=== PATIENT | male | born 1975 | race Caucasian/White ===

== ENCOUNTER 2018-04-04 06:28 | Outpatient (CLI) | payer BC ==
[~2018-04-04] VITALS: Ht 177.8 cm; Wt 102.3 kg
--- NOTE | ~2018-04-04 | HEMODYNAMI ---
PATIENT:ARIANA WELCH MEDICAL RECORD: [id number] : 73 LOCATION:[facility] ADMISSION DATE: 04/04/18 Generatedon:04/04/20188:41 Patient name: ARIANA WELCH Patient #: [id number] SSN: DO B: 1975 Date of study: 04/04/2018 Page: Of Hemodynamic Procedure Report Patient Data Patient Demographics Procedure consent was obtained First Name: ARIANA Gender: Male Last Name: REBEKAH : 1975 Patient #: [id number] Age: 42 year(s) Race: Unknown Additional ID: [id number] Contact details [address]: [address] [place] [address] State: [place] City: [place] Zip code: [address] Past Medical History Allergies: No known allergies Admission Admission Data Admission Date: 04/04/2018 Admission Time: 6:28 Lab Results Lab Result Date: 04/04/2018 Lab Result Time: 7:15 Biochemistry Name Units Result Min Max BUN mg/dl 17 --(---*)-- 7 18 Creatinine mg/dl 1 --(--*-)-- 0.6 1.3 CBC Name Units Result Min Max Hematocrit % 42.3 --(*---)-- 42 54 Hemoglobin g/dl 14.8 --(-*--)-- 13.5 17.5 Procedure Procedure Types Cath Procedure Diagnostic Procedure LHC LHC w/Coronaries Procedure Description Procedure Date Procedure Date: 04/04/2018 Procedure Start Time: 8:24 Procedure End Time: 8:41 Procedure Staff Name Function Chas Fong MD Performing Physician Regina Sol RT Monitor Paulo Haney RN Nurse Pedro Stone RN [employer] Kala Mccabe RT Scrub Procedure Data Cath Procedure Fluoroscopy Diagnostic fluoroscopy Total fluoroscopy Time: 6.1 time: 6.1 min min Diagnostic fluoroscopy Total fluoroscopy dose: 604 dose: 604 mGy mGy Contrast Material Contrast Material Type Amount (ml) Isovue 370 40 Entry Location Entry Primary Successful Side Size Upsize Upsize Entry Closure Bowen ccessful Closure Location (Fr) 1 (Fr) 2 (Fr) Remarks Device Remarks Radial Right 6 Fr Mechanical artery Short Compression Estimated blood loss: 5 ml Diagnostic catheters Device Type Used For End Catheter Placement DIAGNOSTIC Chaparro 110cm LV Angiography 5Fr catheter ([id number]) DIAGNOSTIC Chaparro 110cm Right Coronary 5Fr catheter ([id number]) Angiography DIAGNOSTIC Chaparro 110cm Left Coronary 5Fr catheter ([id number]) Angiography DIAGNOSTIC Beggs 110cm 5 Left Coronary Fr catheter (687331) Angiography Procedure Complications No complications Procedure Medications Medication Administration Route Dosage 0.9% NaCl I.V. 100 ml/hr Oxygen etCO2 Nasal cannula 2 l/min Heparin Flush Bag added to field 2 bags (1000units/500ml NS) Lidocaine 2% added to field 20 Radial Cocktail added to field 1 syringe (Verapomil 2mg/Nitro 400mcg/Heparin 1500units) Versed I.V. 2 mg Fentanyl I.V. 50 mcg Radial Cocktail I.A. 1 syringe (Verapomil 2mg/Nitro 400mcg/Heparin 1500units) Hemodynamics Rest HGB: 14.8 (g/dl) Heart Rate: 61 (bpm) Pressure Samples Time Site Value (mmHg) Purpose Heart Use Rate(bpm) 8:28 LV 95/-5,9 EDP 72 8:28 LV 114/3,13 Snapshot 76 Gradients Valve Time Site Site Mean SEP/DFP Peak To Heart Use 1 2 (mmHg) (sec/min) Peak Rate (mmHg) (bpm) Aortic 8:29 LV AO 80 Snapshots Pre Cath Intra NCS Post Cath Vital Signs Time Heart Resp SPO2 etCO2 NIBP (mmHg) Rhythm Pain Sedation Rate (ipm) (%) (mmHg) Status Level (bpm) 8:07:16 57 16 100 0 136/82(106) NSR 0 (11) 10(A) , No pain 8:12:05 58 18 100 40.2 133/88(107) NSR 0 (11) 10(A) , No pain 8:16:56 65 13 98 40.9 129/71(103) NSR 0 (11) 10(A) , No pain 8:21:45 63 12 98 40.9 126/81(100) NSR 0 (11) 10(A) , No pain 8:26:32 57 16 99 38.7 123/77(99) NSR 0 (11) 10(A) , No pain 8:31:20 66 16 97 35.7 115/63(89) NSR 0 (11) 10(A) , No pain 8:36:05 61 13 97 39.4 117/69(93) NSR 0 (11) 10(A) , No pain 8:40:50 57 14 98 38.7 120/76(90) NSR 0 (11) 10(A) , No pain Medications Time Medication Route Dose Verified Delivered Reason Notes Effectiveness by by 8:07:54 0.9% NaCl I.V. 100 Paulo Paulo Per ml/hr Lorkacie Haney physician RN RN 8:08:07 Oxygen etCO2 2 l/min Paulo Paulo Per Nasal Medina Haney physician cannula RN RN 8:08:18 Heparin Flush added 2 bags Paulo Paulo used for Bag to Lorigan Medina procedure (1000units/500ml field RN RN NS) 8:08:39 Lidocaine 2% added 20ml Paulo Paulo for local to vial Lorigan Lorigan anesthetic field RN RN 8:08:55 Radial Cocktail added 1 Paulo Paulo used for (Verapomil to syringe Lorigan Lorigan procedure 2mg/Nitro RN RN 400mcg/Heparin 1500units) 8:22:01 Versed I.V. 2 mg Paulo Paulo for sedation Medina Haney RN RN 8:22:11 Fentanyl I.V. 50 mcg Paulo Paulo for sedation Medina Haney RN RN 8:26:12 Radial Cocktail I.A. 1 Paulo Chas for (Verapomil syringe Medina woodard 2mg/Nitro RN 400mcg/Heparin 1500units) Procedure Log Time Note 7:51:54 Pedro Stone RN sent for patient. Start room use. 7:51:55 Time tracking: Regular hours (M-F 7:00 - 5:00) 7:51:59 Plan of Care:Hemodynamics will remain stable., Cardiac rhythm will remain stable., Comfort level will be maintained., Respiratory function will remain adequate., Patient/ family verbilizes understanding of procedure., Procedure tolerated without complication., Recovers from procedure without complications.. 8:00:11 Patient received from Pre/Post Procedure Room to CCL 1 Alert and oriented. Tansferred to table in Supine position. 8:00:12 Warm blankets applied, and tiffani hugger turned on for patient comfort. 8:00:13 Correct patient and procedure confirmed by team. 8:00:14 Signed procedure consent form obtained from patient. 8:00:15 ECG and BP/O2 sat monitors applied to patient. 8:03:39 H&P Date Dictated: 04/03/2018 Within 30 days and on chart., H&P Addendum completed by physician on day of procedure. (MUST COMPLETE FOR ALL OUTPATIENTS). 8:03:40 Pre-procedure instructions explained to patient. 8:03:41 Pre-op teaching completed and patient verbalized understanding. 8:03:42 Family in waiting room. 8:03:43 Patient NPO since Midnight. 8:03:48 Patient allergic to No known allergies 8:03:51 Is the patient allergic to Iodine/contrast media? No. 8:03:52 Is patient on blood thinner?Yes 8:03:54 ACC The patient was administered the following blood thiners within the last 24 hours: ACCPlavix 8:03:56 Patient diabetic? No. 8:03:58 Previous problem with sedation/anesthesia? No ? 8:04:00 Snore? Yes 8:04:00 Sleep apnea? No 8:04:01 Deviated septum? No 8:04:02 Opens mouth fully? Yes 8:04:03 Sticks out tongue? Yes 8:04:05 Airway obstruction? No ? 8:04:08 Dentures? No ? 8:04:11 Modified Jonathan's test Ulnar < 7 seconds 8:04:13 Patient pain scale 0/10 ?. 8:04:22 IV patent on arrival in left hand with 0.9% NaCl at [facility]. 8:04:52 Lab results completed and on chart. 8:04:56 Right Radial & Right Groin area was prepped with chlora-prep and draped in sterile fashion 8:04:57 Alarms reviewed by R. N. 8:04:57 Sharps counted by scrub and verified by R.N. 8:05:00 Use device set Radial Dx or PCI 8:05:01 ACIST Syringe (23742) opened to sterile field. 8:05:01 Medline Cath Pack ([id number]) opened to sterile field. 8:05:02 Bag Decanter (2002S) opened to sterile field. 8:05:03 ACIST Hand Control (04422) opened to sterile field. 8:05:03 ACIST Manifold (17452) opened to sterile field. 8:05:04 Tegaderm 4 x 4 (1626W) opened to sterile field. 8:05:04 MBrace Wrist Support ([id number]) opened to sterile field. 8:05:06 DIAGNOSTIC WIRE .035 260cm J wire (555928) opened to sterile field. 8:05:07 SHEATH 6Fr Prelude Radial ([id number]) opened to sterile field. 8:05:48 Lab Result : Creatinine 1 mg/dl 8::48 Lab Result : BUN 17 mg/dl 8::48 Lab Result : Hemoglobin 14.8 g/dl 8::48 Lab Result : Hematocrit 42.3 % 8:06:09 Vital chart was started 8:07:54 0.9% NaCl 100 ml/hr I.V. was administered by Paulo Haney RN; Per physician; 8:08:07 Oxygen 2 l/min etCO2 Nasal cannula was administered by Paulo Haney RN; Per physician; 8:08:18 Heparin Flush Bag (1000units/500ml NS) 2 bags added to field was administered by Paulo Haney RN; used for procedure; 8:08:39 Lidocaine 2% 20ml vial added to field was administered by Paulo Haney RN; for local anesthetic; 8:08:55 Radial Cocktail (Verapomil 2mg/Nitro 400mcg/Heparin 1500units) 1 syringe added to field was administered by Paulo Haney RN; used for procedure; 8:09:21 Rhythm: sinus rhythm 8:09:22 Baseline sample Acquired. 8:09:23 Full Disclosure recording started 8:09:37 Pre procedure: right dorsailis pedis pulse 2+ Normal; easily identifiable; not easily obliterated 8:15:22 Zero performed for pressure channel P1 8:20:05 Physician paged 8:21:30 Final Timeout: patient, procedure, and site verified with staff and physician. All members of the team are in agreement. 8:21:32 Right Radial site verified by team. 8:21:34 Physical assessment completed. ASA score P 2 - A patient with mild systemic disease as per Chas Fong MD. 8:21:37 Sedation plan: IV Moderate Sedation Medication:Versed, Fentanyl 8:22:01 Versed 2 mg I.V. was administered by Paulo Haney RN; for sedation; 8:22:11 Fentanyl 50 mcg I.V. was administered by Paulo Haney RN; for sedation; 8:24:23 Procedure started. 8:24:32 Local anesthetic to right radial artery with Lidocaine 2% by Chas Fong MD.INITIAL ACCESS ONLY 8:25:48 A 6 Fr Short sheath was inserted into the Right Radial artery 8:26:12 Radial Cocktail (Verapomil 2mg/Nitro 400mcg/Heparin 1500units) 1 syringe I.A. was administered by Chas Fong MD; for vasodilation; 8:27:00 A DIAGNOSTIC Chaparro 110cm 5Fr catheter ([id number]) was advanced over the wire and used for LV Angiography. 8:29:17 LV gram done using BLACK 8:29:18 LV hemodynamics recorded. 8:29:20 Injector settings: Ml/sec: 12, Volume: 8, 8:31:48 A DIAGNOSTIC [place] 110cm 5Fr catheter (200491) was advanced over the wire and used for Right Coronary Angiography. 8:33:07 A DIAGNOSTIC [place] 110cm 5Fr catheter (846744) was advanced over the wire and used for Left Coronary Angiography. unable to cannulate 8:33:11 Catheter removed. 8:33:46 A DIAGNOSTIC Beggs 110cm 5 Fr catheter (448040) was advanced over the wire and used for Left Coronary Angiography. 8:36:21 Catheter removed. 8:36:33 Sheath removed intact; hemostasis achieved with Mechanical Compression to the Right Radial artery. 8:36:35 Procedure ended.(Physican Out) 8:36:47 Fluoroscopy time 06.10 minutes. 8:36:50 Fluoroscopy dose: 604 mGy 8:36:50 Flurop Dose total: 604 8:36:54 Contrast amount:Isovue 370 40ml. 8:36:55 Sharps counted by scrub and verified by R.N. 8:36:58 TR band inflated with 11cc of air. 8:36:59 Insertion/operative site no bleeding no hematoma. 8:37:06 Post right radial artery:stable, clean and dry 8:37:08 Post Procedure Pulses reassessed and unchanged 8:38:11 Post-procedure physical assessment completed. ASA score P 2 - A patient with mild systemic disease as per Chas Fong MD. 8:38:14 Post procedure rhythm: unchanged. 8:38:17 Estimated blood loss: 5 ml 8:38:19 Post procedure instruction explained to patient.Patient verbalizes understanding. 8:38:19 Patient needs reinforcement of post procedure teaching. 8:38:40 Procedure Complication : No complications 8:38:43 See physician's report for complete and final results. 8:38:59 TR BAND Standard ([id number]) opened to sterile field. 8:39:31 Procedure and supply charges have been captured, reviewed, submitted and are correct. 8:41:29 Vital chart was stopped 8:41:30 Report given to Pre/Post Procedure Room. 8:41:34 Patient transfered to Pre/Post Procedure Room with Stretcher. 8:41:41 Procedure ended. 8:41:41 Full Disclosure recording stopped 8:41:45 End room use (Document Last) Device Usage Item Name Manufacture Quantity Catalog Number Hospital Part Current M inimal Lot# / Charge Number Stock Stock Serial# Code ACIST Syringe Acist 1 20174 344641 389448 420255 2 0 (37927) [employer] Medline Cath Cardinal 1 [id number] 242743 [address] [facility] ([id number]) Bag Decanter Microtek 1 2001S 210182 02240 564774 5 (2001S) Medical Inc. ACIST Hand Acist 1 31449 739143 694783 353770 5 Control (60007) [employer] ACIST Manifold Acist 1 17455 805306 043810 267050 5 (86674) [employer] Tegaderm 4 x 4 3M 1 1626W 777150 999657 949053 5 (1626W) MBrace Wrist Advanced 1 140-0250-00 262370 13934 856504 5 Support Vascular ([id number]) Dynamics DIAGNOSTIC WIRE St Dannie 1 162880 407520 670710 529161 3 0 .035 260cm J wire (804267) SHEATH 6Fr Merit 1 [id number] 111038 853575 230175 5 Prelude Radial Medical ([id number]) DIAGNOSTIC Terumo 1 53-4502 857714 180372 599232 5 Chaparro 110cm 5Fr catheter (216437) DIAGNOSTIC Terumo 1 40-9942 514309 310200 257914 5 Beggs 110cm 5 Fr catheter (230803) TR BAND Terumo 1 [id number] 594103 170436 019689 4 0 Standard ([id number]) Signature Audit [place] Stage Time Signature Unsigned Intra-Procedure 04/04/2018 Regina 8:41:56 AM Counts RT(R) Signatures Monitor : Regina Signature : Counts RT Date : Time : [address] [address]
[2018-04-04] MEDS ORDERED: BAYER CHEWABLE81 MG PO (06:38)
[2018-04-04] MEDS ORDERED: KLONOPIN0.5 MG PO (06:38)
[2018-04-04] MEDS ORDERED: VYTORIN 10-20 M1 TAB PO (06:39)
[2018-04-04 06:58] VITALS: BP 133/78; Ht 177.8 cm; Wt 102.3 kg
[2018-04-04 07:19] LABS: BASOPHILS 0.5 % (0-2); EOSINOPHILS 5.1 % (0-7); HEMATOCRIT 42.3 % (42.0-54.0); HEMOGLOBIN 14.8 g/dL (13.5-17.5); IMMATURE GRANULOCYTES 0.4 % (0-5); LYMPHOCYTES 32.3 % (15-50); MCH 33.2 pg (26.0-34.0); MCV 94.8 fL (80.0-100.0); MEAN PLATELET VOLUME 12.2 fL (7.4-10.4); MONOCYTES 9.9 % (2-11); NEUTROPHILS 51.8 % (40-80); PLATELET COUNT 187 10x3/uL (130-400); RBC 4.46 10x6/uL (4.20-6.10); RDW 13.1 % (11.5-14.5); WBC 5.6 10x3/uL (4.8-10.8)
[2018-04-04 07:42] LABS: CALC OSMOLALITY 286 mosm/kg (275-300); CALCIUM 9.7 mg/dL (8.5-10.1); CARBON DIOXIDE 25.1 mmol/L (21.0-32.0); CHLORIDE - SERUM 105 mmol/L (98-107); GLUCOSE 101 mg/dL (74-106); POTASSIUM - SERUM 4.5 mmol/L (3.5-5.1); SODIUM 143 mmol/L (136-145); UREA NITROGEN 17 mg/dL (7-18); eGFR NON AFRICAN AMERICAN 87 mL/min (90-120)
== END 2018-04-04 10:50 | disposition home or self-care (01) ==
LOC: D.CATH 06:28
PROVIDERS: Internal Medicine Cardiovascular Disease
DX: R07.89 Other chest pain (principal); Z01.812 Encounter for preprocedural laboratory examination